=== PATIENT | female | born 1935 | race Caucasian/White ===

== ENCOUNTER 2016-06-08 19:38 | Inpatient (IN) | payer OTHER ==
--- NOTE | ~2016-06-08 | CN ---
Consultation Report [facility] [address] [place]. [address] NAME: RAMIRO ARORA : 35 STATUS : ADM Celia PAT#: [id number] AGE: 81 ADM/REG DATE : 06/08/16 MR#: [id number] REPORT SERV DATE: 06/09/16 DICTATED BY: ELIANE GENAO DATE: 06/09/16 REPORT STATUS : Draft TRANSCRIBED BY: MODL DATE: 06/09/16 NEUROLOGY CONSULTATION DATE OF CONSULTATION: 06/09/2016 REASON FOR CONSULTATION: Acute encephalopathy and weakness. HOSPITALIST: Michael García DO. ONCOLOGIST: Rosa Boyle M.D., in [place]. HISTORY OF PRESENT ILLNESS: The patient is an 81-year-old female who has a diagnosis of non- Hodgkin's lymphoma. On 05/28, the patient had a fall which ended up with a fall which was fairly significant. It was thought that she may have fractured the hip. So she was taken to [facility] for further evaluation and treatment. She was evaluated there and was found to not have any significant or untoward injuries. However, she was confused. According to the patient's two daughters, she was having visual hallucinations and lost her vision. She was unable to see for the first week. According to the patient, she was completely blind. Over the last several days, the patient has been able to distinguish some shakes and some movement. She is able to distinguish light. Prior to that, she had good vision. The patient was discharged from [facility] and went home. However, she was "a lot to handle" for the daughters. She could not carry on activities of daily living. She was unable to ambulate and again was unable to see. The daughters called Dr. Juarez who is the patient's corpsman, and he suggested that they bring the patient to [facility]. They brought her to the emergency department and consequently, she was admitted. It was found that she had a subacute to chronic fracture in her vertebrae from L1 to L2. A CT of her hip found a hypodense hematoma in the inguinal region, and she also had a pleural effusion and consolidation in her left lung. The patient was admitted and according to her daughter, she still is talking to people and animals that are not there. Upon admission, it was found that her INR was 11.2. She is currently taking Coumadin for atrial fibrillation. PAST MEDICAL HISTORY: Atrial fibrillation (on Coumadin therapy), coronary artery disease, hypertension, non-Hodgkin's lymphoma, gout, depression, GERD, stress incontinence, hyperlipidemia, and cigarette abuse. PAST SURGICAL HISTORY: Left breast lump removal, lymph node biopsy, and retinal repair on the left eye. HOME MEDICATIONS: Allopurinol 300 mg daily, Tenormin 50 mg daily, Tums p.r.n., Vantin 100 mg b.i.d. x5 days (which was completed on the ), Celexa 20 mg daily, HydroDIURIL 12.5 mg q.a.m., Zestril 20 mg q.a.m., nitroglycerin 0.4 mg sublingual p.r.n., Prilosec 20 mg daily, Ditropan 5 mg b.i.d., Zocor 20 mg q.a.m., Imdur ER 30 mg b.i.d., and Coumadin 4 mg daily. Consultation Report [address] [place]. [address] NAME: RAMIRO ARORA : 35 STATUS : ADM Celia PAT#: [id number] AGE: 81 ADM/REG DATE : 06/08/16 MR#: [id number] REPORT SERV DATE: 06/09/16 DICTATED BY: ELIANE GENAO DATE: 06/09/16 REPORT STATUS : Draft TRANSCRIBED BY: BECKI DATE: 06/09/16 ALLERGIES: CHANTIX. SOCIAL HISTORY: The patient is . She has four children. 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 She is a smoker. She does not drink alcohol or use illicit's. FAMILY HISTORY: The patient's mother at 75 from a stroke. Her father also at the age of 75 from a stroke. She has three brothers. Her oldest brother moved to [place], and she had no further contact. Her middle brother from an [place], and her younger brother at the age of 21 from a motor vehicle accident. REVIEW OF SYSTEMS: For pertinent positives see HPI. PHYSICAL EXAMINATION: VITAL SIGNS: The patient is an 81-year-old female, who stands 5 feet 3 inches tall and weighs 130 pounds. She is afebrile. Heart rate 86, respiratory rate 18, O2 saturations on room air 97%, blood pressure 129/60. NEURO: The patient is awake. She is oriented to person, place, and situation, not time. She can follow simple commands. She is not actively hallucinating at this time. Speech is clear. Language fluent. Right pupil is 2 mm and reactive. Left pupil is 5 mm, irregularly shaped, and minimally reactive (most likely chronic from her surgery). The patient cannot track with her eyes. Visual acuity is hand motion only at 3 feet. She tends to localize to the left more so than the right (questionable visual extinction on the right). She can move all extremities x4. However, she has a positive pronator drift on the right. Finger to nose, non ataxic. Upper extremity strength is 4/5 on the left and 3/5 on the right. Upper DTRs 1+ bilaterally. No reported sensory deficits. In the lower extremities, strength is 2/5 bilaterally. DTRs are 1+ bilaterally. Downgoing toes. No reported sensory deficits. NECK: No carotid bruits, JVD or thyromegaly. CHEST: Lung sounds are clear on the right. Diminished on the left with crackles. DATA: CBC is normal. BMP: Sodium 126, serum bicarb is 19. INR 11.2. Urinalysis negative for UTI. Procalcitonin 0.47 and lactate is 4.3. Chest x-ray, consolidation and effusion in the left lung. CT of the abdomen shows 1. Hematoma in the right inguinal region. 2. Small pericardial effusion. 3. Large irregular mass in the lower pelvis. 4. Soft tissue mass over the pancreas. 5. Chronic fracture L1-L2 of the spine. CT of the brain, no acute changes. NIH stroke scale is 9. ASSESSMENT/PLAN: 1. Acute encephalopathy; multifactorial in nature. Consultation Report [address] [place]. [address] NAME: RAMIRO ARORA : 35 STATUS : ADM Celia PAT#: [id number] AGE: 81 ADM/REG DATE : 06/08/16 MR#: [id number] REPORT SERV DATE: 06/09/16 DICTATED BY: ELIANE GENAO DATE: 04/25/17 REPORT STATUS : Draft TRANSCRIBED BY: BECKI DATE: 06/09/16 a. Probable stroke. At this point, the patient will undergo an MRI of the brain without gadolinium and an MRA of the head and neck. She will most likely need some low-dose Ativan, PT, OT, speech therapy consultation, risk factor reduction. She is Coumadin toxic. So she will only be placed on Lipitor 80 mg at this time. b. Sepsis. The patient's lactate is 4.3. c. Possible pneumonia and pleural effusion in the left lobe. d. Hyponatremia. e. Coumadin toxicity. There is possibility of cerebral bleed. f. Lymphoma, possibility of paraneoplastic syndrome or metastasis. Thank you again for including us in consultation. We will go ahead and order additional lab work. Discontinue medications that could make the patient encephalopathic which would include Phenergan, Ditropan, and Celexa. Seroquel 12.5 mg will be added at bedtime and increase if tolerated. MICHELLE/BECKI Eliane Genao, [facility]- / [id number] CC: Keila Costa M.D. Wesley S. Thompson, DO Sylvia Krueger, M.D.
--- NOTE | ~2016-06-08 | HP ---
History And Physical [place] [id number] [facility] [place]. [address] NAME: RAMIRO ARORA : 35 STATUS : ADM Celia PAT#: [id number] AGE: 81 ADM/REG DATE : 06/08/16 MR#: [id number] REPORT SERV DATE: 06/09/16 DICTATED BY: ROMEO DOMINGUEZ DATE: 06/09/16 REPORT STATUS : Draft TRANSCRIBED BY: MODL DATE: 06/09/16 DATE OF ADMISSION: 06/08/2016 CHIEF COMPLAINT: Confusion and weakness. HISTORY OF PRESENT ILLNESS: This is an 81-year-old female with a history of lymphoma, followed by Dr. Rosa Boyle in [place], [place]; history of fall recently with altered mental status and confusion since then; left hip pain; atrial fibrillation, on chronic anticoagulation, who was brought to the emergency room here at [facility] with the above-mentioned complaint. History is obtained from the patient's two daughters, who are at bedside and reviewing data available on the [employer] system. According to available data, Ms. Arora had sustained a fall at home about a week and a half ago and since then, had been progressively getting more confused. She was fine before her fall taking care of herself entirely. Since then, she has become completely incapable of taking care of herself, cannot even do activities of daily living. She is completely confused. She was taken to [facility] after her fall, where initial workup did not reveal any acute fractures. She was admitted as an inpatient and workup was done, the details of which we do not have at this point. She was finally discharged to home a few days back, but the patient's family was very concerned, as she was completely incapable of doing anything at this point. They called the environmental emergencies planner, Dr. Rebolledo in [place], who suggested to bring her here. In the emergency room here, CT scan of the spine showed fracture of the L1-L2 vertebrae. CT of the brain was negative. CT of the hip showed hypodense hematoma in the right inguinal region. Films of the chest x-ray did not reveal any acute disease, but she had pleural effusion. Hospitalist Service is asked to admit her for further evaluation and treatment. At the time of my evaluation, she denied any chest pain, palpitations, or orthopnea. She has had no cough recently; has not had any hemoptysis, night sweats; or weight loss. According to the family, other than the fall mentioned above, she has not had any fevers, chills, nausea, vomiting, diarrhea, hematemesis, hematochezia, or hematuria. No other history of recent travel or exposures other than those mentioned above. PAST MEDICAL HISTORY: Significant for lymphoma, unknown kind, followed by Dr. Cassidy Boyle in [place], [place]; history of atrial fibrillation, on Xarelto; history of coronary artery disease; essential hypertension as well. SOCIAL HISTORY: She has about 60- to 70-pack year history of smoking, continues to do so. She denies alcohol use or recreational drug use. She is currently disabled. 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 FAMILY HISTORY: Noncontributory. MEDICATIONS: Her medications at home were reviewed by me in the chart today and reordered by me. History And Physical [address] [address] NAME: RAMIRO ARORA : 35 STATUS : ADM Celia PAT#: [id number] AGE: 81 ADM/REG DATE : 06/08/16 MR#: [id number] REPORT SERV DATE: 06/09/16 DICTATED BY: ROMEO DOMINGUEZ DATE: 06/09/16 REPORT STATUS : Draft TRANSCRIBED BY: BECKI DATE: 06/09/16 REVIEW OF SYSTEMS: As in history of present illness. All other systems were reviewed in detail and are quite unremarkable. PHYSICAL EXAMINATION EXAM: GENERAL: This is a pleasant 81-year-old, not in any acute distress. HEENT: Her head is atraumatic, normocephalic. She is alert, awake, oriented to time, place, and person. Pupils are equal, reacting to light and accommodating. External ocular muscles are intact. Membranes are moist and pink. Sclerae are nonicteric. NECK: Supple with no jugular venous distention, lymphadenopathy, or thyromegaly. LUNGS: Clear to auscultation with no wheezes, rubs, or crackles. HEART: Heart sounds were regular with no murmurs, rubs, or gallops. ABDOMEN: Soft, nontender. Bowel sounds are present. EXTREMITIES: Showed no cyanosis, clubbing, or edema. NEURO: Grossly intact. No focal sensory or motor deficits. She was able to move all four extremities. However, she is quite confused. She does reply to some questions very appropriately, but then continues on into vague confabulations. VITAL SIGNS: Her vital signs today showed a temperature of 97.8, pulse 84, respirations 19 a minute, blood pressure was 111/68, oxygen saturations were 95% breathing 3 L of oxygen via nasal cannula. LABORATORY DATA: Reviewed on the [employer] system showed a sodium of 125, potassium was 4.0, chloride 91, CO2 of 22, BUN was 26 with a creatinine of 1.02 and glucose was 79. CBC showed a white blood cell count of 8800, normal hemoglobin, hematocrit, and platelet count. Alkaline phosphatase and AST were within normal limits. AST was 44. Urinalysis was quite unremarkable. Films of the chest x-ray were reviewed by me on the PACS today and interpreted by me. Per my interpretation, there is normal bony architecture with no cardiomegaly. There are no acute infiltrates or effusions. CT of the spine, CT of the brain, CT of the hip were all reviewed by me and official radiology reports were also reviewed. CT of the hip did not show any hip or ankle fractures. CT of the spine showed fracture of the vertebral bodies of the L1-L2 vertebrae. CT brain was unremarkable and the hip showed hyperdense hematoma in the right inguinal region measuring 3.5 x 7.9 x 6.6 cm. IMPRESSION: 1. Metabolic encephalopathy. 2. Hyponatremia. 3. Left hip pain. 4. Fracture of the L1-L2 vertebrae. 5. Atrial fibrillation, on chronic anticoagulation with Xarelto. 6. Coronary artery disease. 7. Essential hypertension. 8. Pleural effusion. 9. Fall at home. PLAN: We will admit Ms. Arora to the Hospitalist Service with telemetry for a 24-hour observation period. We will obtain cultures, get a urinalysis done today and urine cultures History And Physical [address] [address] NAME: RAMIRO ARORA : 35 STATUS : ADM Celia PAT#: [id number] AGE: 81 ADM/REG DATE : 06/08/16 MR#: [id number] REPORT SERV DATE: 06/09/16 DICTATED BY: ROMEO DOMINGUEZ DATE: 06/09/16 REPORT STATUS : Draft TRANSCRIBED BY: BECKI DATE: 06/09/16 as well. Her altered mental status is multifactorial, probably metabolic encephalopathy. However, she does have lymphoma, hyponatremia, possible infection. We will check her procalcitonin and lactate levels as well. We will start her on IV fluids for volume replacement, check basic metabolic profiles on a four-hourly basis, follow sodium levels, and check for overcorrection. Nursing has been instructed to call me with the results after every test. We will also be very cautious with pain medications due to her confusion that she has already. We will also go through her medication list and stop any medication that may be a culprit as well. We will continue her anticoagulation for her atrial fibrillation at this period. We will check her prothrombin times and adjust her warfarin doses. We will also get an EKG as well. I have discussed the above plans with the patient and the family. Questions were answered and the two daughters are agreeable to the above recommendations. Further recommendations will follow after we have received results from the tests ordered. We may even consider an MRI of the brain. We will also get records from Dr. Boyle in [place], [place], and from [facility]. Hospitalist Service will be following her during her stay here. /BECKI Romeo Dominguez M.D. / [id number]
--- NOTE | ~2016-06-08 | DS ---
Discharge Summary [facility] [address] [facility] [place]. [address] NAME: RAMIRO ARORA : 35 STATUS : DIS IN PAT#: [id number] AGE: 81 ADM/REG DATE : 06/08/16 MR#: [id number] REPORT SERV DATE: 06/16/16 DICTATED BY: SOLA GUILLEN DATE: 06/15/16 REPORT STATUS : Draft TRANSCRIBED BY: MODL DATE: 06/15/16 ADMISSION DATE: 06/08/2016 DISCHARGE DATE: 06/15/2016 PRINCIPAL DIAGNOSIS: Lymphoma. SECONDARY DIAGNOSIS: 1. 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 2. Progressive dementia with delirium. 3. Acute blindness due to anticipated bilateral amaurosis fugax due to bilateral carotid artery stenosis. 4. Atrial fibrillation. 5. Hyponatremia. 6. Vertebral compression fracture. 7. Hypovolemic acute kidney injury. 8. Pleural effusion. HISTORY OF PRESENT ILLNESS: Please see Dr. Hlyton's dictation on 06/08. HOSPITAL COURSE: Admitted with altered mental status. The patient was found to be delirious and blind. CT showed atrophy, MRI was unremarkable, and funduscopic exam was also unremarkable; however, MRA showed severe bilateral carotid stenosis, but it was questionable whether she would be a candidate for any sort of intervention. We had requested ophthalmology consultation; however, they were unable to evaluate her for a dilated exam to prove ocular CVA but that remained the working diagnosis. The patient also was known to have been at [facility] in the recent past and had a large mass on her groin biopsied. This was concerning for malignancy based on the physical assessment, and the biopsy result in fact was lymphoma. She in addition had pleural effusion which was tapped. This was a lymphocytic infiltrate; however, no malignant cells were found. Flow cytometry, however, was not done. Her hyponatremia had improved. Her mental status had kind of waxed and waned; however, p.o. intake remained very poor. She developed acute renal insufficiency due to lack of p.o. intake. She received volume resuscitation; however, long consultation with the family felt it was best to go ahead and proceed with hospice care, and she was released to a care home facility on 06/15/2016 with hospice consultation upon arrival there as having had a bed-bound status, she was not a candidate for chemotherapy or carotid end arterectomy and most certainly not both. We anticipated with failure to thrive that the time would be relatively short indeed. She was released with Seroquel 25 at bedtime, Namenda, Aricept, Lortab p.r.n., tramadol p.r.n., Lipitor, Tenormin, allopurinol. She had been taken off lisinopril due to renal insufficiency. Greater than 30 minutes were spent in the care of this patient and discharge planning on discharge day. RSM/MODL Discharge Summary [address] [address] NAME: RAMIRO ARORA : 35 STATUS : DIS IN PAT#: [id number] AGE: 81 ADM/REG DATE : 06/08/16 MR#: [id number] REPORT SERV DATE: 06/16/16 DICTATED BY: SOLA GUILLEN DATE: 06/15/16 REPORT STATUS : Draft TRANSCRIBED BY: MODStefani DATE: 06/15/16 Sola Guillen M.D. / [id number] CC: Keila Costa M.D.
--- NOTE | ~2016-06-08 | CN ---
Consultation Report [facility] [address] [place]. [address] NAME: RAMIRO ARORA : 35 STATUS : ADM Celia PAT#: [id number] AGE: 81 ADM/REG DATE : 06/08/16 MR#: [id number] REPORT SERV DATE: 06/10/16 DICTATED BY: PEPE MENDEZ DATE: 06/10/16 REPORT STATUS : Draft TRANSCRIBED BY: MODL DATE: 06/10/16 CONSULTATION NOTE DATE OF CONSULTATION: 06/10/2016 HISTORY: This is an 81-year-old, debilitated white female whom I am asked to see for bilateral hydronephrosis. She has been admitted to the hospital with altered mental status. Her family states that she had a fall a couple of weeks ago and has been debilitated and nonambulatory since then. She has become more confused at home and incapable of self-care. In addition, she has been treated by Dr. Boyle in [place] for history of non-Hodgkin's lymphoma. The family said that this has been followed conservatively for quite sometime but recently a course of treatment has been tried, and the patient was having trouble tolerating it secondary to weakness. Since she has been here in the hospital, a CT of the abdomen and pelvis has been performed which has shown bilateral hydroureteronephrosis right greater than left with bulky retroperitoneal adenopathy and a large pelvic mass. Presumably, this represents the lymphoma. The urologic history is obtained through the patient's daughter, and she says that Ms. Arora saw urologist in the [place] group within the last year for urinary urgency and sensation of incomplete emptying but no treatment was elected. Although, she may have had occasional UTI, she does not sound like she has had chronic UTIs. At this point, she has a Odom catheter indwelling. She denies complaints of discomfort referable to her kidneys. MEDICAL HISTORY: Includes atrial fibrillation, chronically anticoagulated with Coumadin. Also history of heart disease and hypertension. SOCIAL HISTORY: She has a long smoking history and continues to smoke. She does not drink. She lives with family. PHYSICAL EXAMINATION: GENERAL: She is a pleasant white female. She is conversive and oriented at this point. She asks appropriate questions. VITAL SIGNS: She is afebrile. Her vital signs are stable. ABDOMEN: Soft, nontender, and nondistended. I cannot specifically palpate any masses. BACK: Shows no CVA tenderness. : Her bladder is not palpable. There is a Odom catheter indwelling draining what looks like reasonably clear urine. LABORATORY DATA: Blood cultures are negative. BUN and creatinine are 28 and 0.9 respectively. White count 8.5, H and H 12.6 and 37.4. Urinalysis showed 3 red cells and 4 white cells per high-powered field. CT abdomen and pelvis again has been reviewed and shows bilateral retroperitoneal adenopathy with bilateral hydronephrosis right greater than left. In addition, there is a large pelvic mass. No specific renal stone is noted. IMPRESSION: Consultation Report [place] [id number] [facility] [address] NAME: RAMIRO ARORA : 35 STATUS : ADM Celia PAT#: [id number] AGE: 81 ADM/REG DATE : 06/08/16 MR#: [id number] REPORT SERV DATE: 06/10/16 DICTATED BY: PEPE MENDEZ DATE: 06/10/16 REPORT STATUS : Draft TRANSCRIBED BY: BECKI DATE: 06/10/16 1. Bilateral hydronephrosis right somewhat greater than left due to ureteral obstruction from retroperitoneal and pelvic masses. 2. Non-Hodgkin's lymphoma with failed recent treatment trial. 3. Debility, nonambulatory in part secondary to recent fall. 4. Pleural effusion. 5. Altered mental status. 6. Multiple other medical issues as outlined above. RECOMMENDATIONS: I discussed the implications of the ureteral obstruction with the patient and her family. We discussed management options of no treatment and observation versus proceeding with cystoscopy and ureteral stenting or even nephrostomy tube drainage. They understand that stenting will help maintain an optimized kidney function particularly for any future treatment of the lymphoma. They also understand that ureteral stenting could be complicated by bleeding, infection, discomfort, and by the certainty of the need for repetitive surgery to exchange the stents. After reviewing all pros and cons, the family is undecided at this point, but are leaning toward a conservative management, and I think this is reasonable. I will follow up tomorrow, and we will go from there. Thank you for the consult. SELENA/BECKI Pepe Mendez M.D. / [id number] CC: Keila Costa M.D.
[2016-06-08 22:33] LABS: BASOPHILS 0.1 %; BASOPHILS ABSOLUTE 0.01 10/3/uL (0.0-0.16); EOSINOPHILS 0.2 %; EOSINOPHILS ABSOLUTE 0.02 10/3/uL (0.0-0.53); ER CBC TAT 0 Hrs 08 Mins; HEMATOCRIT 36.2 % (36.0-48.0); HEMOGLOBIN 12.4 g/dL (12.0-16.0); IMMATURE GRANULOCYTES 1.2 %; IMMATURE GRANULOCYTES ABSOLUTE 0.11 10/3/uL (0.0-0.11); LYMPHOCYTES 10.3 %; LYMPHOCYTES ABSOLUTE 0.91 10/3/uL (0.67-4.30); MEAN CORPUS HGB CONC 34.3 g/dL (32.0-36.0); MEAN CORPUSCULAR HEMOGLOB 30.5 pg (26.0-34.0); MEAN CORPUSCULAR VOLUME 89.2 fL (80-100); MEAN PLATELET VOLUME 10.4 fL (9.2-13.0); MONOCYTES 6.1 %; MONOCYTES ABSOLUTE 0.54 10/3/uL (0.21-1.20); NEUTROPHILS 82.1 %; NEUTROPHILS ABSOLUTE 7.25 10/3/uL (2.02-8.40); PLATELET COUNT 219 10/3/uL (150-400); RBC DISTRIBUTION WIDTH 21.5 % (12.0-16.0); RED CELL COUNT 4.06 10/6/uL (4.0-5.6); WHITE BLOOD CELLS 8.8 10/3/uL (4.5-10.5)
[2016-06-08 22:34] LABS: MANUAL DIFF NO %
[2016-06-08 22:50] LABS: A/G RATIO 0.9 (0.7-1.9); ALBUMIN 2.8 G/DL (3.5-5.0); ALKALINE PHOSPHATASE 103 U/L (45-117); BUN (BLOOD UREA NITROGEN) 26 MG/DL (6-23); CALCIUM, SERUM 9.2 MG/DL (8.5-10.4); CHLORIDE, SERUM 91 MMOL/L (96-112); CO2 (CARBON DIOXIDE) 22 MMOL/L (24-34); CREATININE 1.02 MG/DL (0.55-1.02); DIRECT BILIRUBIN 0.3 MG/DL (0.0-0.4); GFR AFRICAN AMERICAN 60 ML/MIN (>=60); GFR NON AFRICAN AMERICAN 52 ML/MIN (>=60); GLUCOSE, SERUM 79 MG/DL (60-99); INDIRECT BILIRUBIN(NOT ORDER) 0.7 MG/DL (0.1-0.9); SGOT(AST) 44 U/L (5-40); SGPT(ALT) 12 U/L (5-65); SODIUM, SERUM 125 MMOL/L (135-148); TOTAL PROTEIN 5.8 G/DL (6.0-8.5)
[2016-06-09] MEDS ORDERED: VANTIN100 MG PO (00:59)
[2016-06-09] MEDS ORDERED: HCTZ12.5 PO (00:59)
[2016-06-09] MEDS ORDERED: ZESTRIL20 MG PO (01:00)
[2016-06-09] MEDS ORDERED: DITRO5 PO (01:01)
[2016-06-09] MEDS ORDERED: TUMSROLL PO (01:02)
[2016-06-09] MEDS ORDERED: COUMADIN4 MG PO (01:02)
[2016-06-09] MEDS ORDERED: PRILO PO (01:02)
[2016-06-09] MEDS ORDERED: ATEN50 PO (01:03)
[2016-06-09] MEDS ORDERED: CELEXA20 PO (01:03)
[2016-06-09] MEDS ORDERED: Z300 PO (01:04)
[2016-06-09] MEDS ORDERED: ZOCOR20 PO (01:04)
[2016-06-09] MEDS ORDERED: NITROSTAT0.4 MG SL (01:04)
[2016-06-09] MEDS ORDERED: IMDUR ER (01:08)
[2016-06-09 01:49] LABS: ASCORBIC ACID (UR NOT ORDER) NEG (NEG); BILIRUBIN, URINE NEGATIVE (NEG); ER URINALYSIS TAT 0 Hrs 00 Mins; KETONE, URINE 20 MG/DL (NEG); LEUKOCYTE ESTERASE(NOT OR NEG (NEG); NITRITE (URINE) NEG (NEG); WBC (NOT ORDERED) (RFLEX) 4 (0-5)
[2016-06-09 06:16] LABS: BASOPHILS 0.2 %; BASOPHILS ABSOLUTE 0.02 10/3/uL (0.0-0.16); EOSINOPHILS 0.1 %; EOSINOPHILS ABSOLUTE 0.01 10/3/uL (0.0-0.53); HEMATOCRIT 37.4 % (36.0-48.0); HEMOGLOBIN 12.6 g/dL (12.0-16.0); IMMATURE GRANULOCYTES 1.4 %; IMMATURE GRANULOCYTES ABSOLUTE 0.12 10/3/uL (0.0-0.11); LYMPHOCYTES 12.4 %; LYMPHOCYTES ABSOLUTE 1.05 10/3/uL (0.67-4.30); MEAN CORPUS HGB CONC 33.7 g/dL (32.0-36.0); MEAN CORPUSCULAR HEMOGLOB 30.4 pg (26.0-34.0); MEAN CORPUSCULAR VOLUME 90.3 fL (80-100); MEAN PLATELET VOLUME 10.3 fL (9.2-13.0); MONOCYTES 7.6 %; MONOCYTES ABSOLUTE 0.65 10/3/uL (0.21-1.20); NEUTROPHILS 78.3 %; NEUTROPHILS ABSOLUTE 6.65 10/3/uL (2.02-8.40); PLATELET COUNT 230 10/3/uL (150-400); RBC DISTRIBUTION WIDTH 21.3 % (12.0-16.0); RED CELL COUNT 4.14 10/6/uL (4.0-5.6); WHITE BLOOD CELLS 8.5 10/3/uL (4.5-10.5)
[2016-06-09 06:18] LABS: MANUAL DIFF NO %
[2016-06-09 06:41] LABS: BUN (BLOOD UREA NITROGEN) 30 MG/DL (6-23); CALCIUM, SERUM 9.3 MG/DL (8.5-10.4); CHLORIDE, SERUM 91 MMOL/L (96-112); CO2 (CARBON DIOXIDE) 19 MMOL/L (24-34); GFR AFRICAN AMERICAN 55 ML/MIN (>=60); GFR NON AFRICAN AMERICAN 47 ML/MIN (>=60); GLUCOSE, SERUM 72 MG/DL (60-99); PHOSPHORUS, SERUM 3.3 MG/DL (2.5-4.5); POTASSIUM, SERUM 4.3 MMOL/L (3.5-5.3); SODIUM, SERUM 126 MMOL/L (135-148)
[2016-06-09 07:28] LABS: INTERNATIONAL NORMAL RATI 11.2 UNITS (-); PROTIME (NOT ORD) 86.5 SEC (12.0-14.5)
[2016-06-09 09:34] LABS: BUN (BLOOD UREA NITROGEN) 30 MG/DL (6-23); CALCIUM, SERUM 8.9 MG/DL (8.5-10.4); CHLORIDE, SERUM 90 MMOL/L (96-112); CO2 (CARBON DIOXIDE) 22 MMOL/L (24-34); CREATININE 1.11 MG/DL (0.55-1.02); GFR AFRICAN AMERICAN 54 ML/MIN (>=60); GFR NON AFRICAN AMERICAN 47 ML/MIN (>=60); GLUCOSE, SERUM 73 MG/DL (60-99); POTASSIUM, SERUM 4.2 MMOL/L (3.5-5.3); SODIUM, SERUM 126 MMOL/L (135-148)
[2016-06-09 11:20] LABS: AMMONIA < 10 UMOL/L (11-32)
[2016-06-09 11:46] LABS: ALBUMIN 2.9 G/DL (3.5-5.0); CHOL/HDL RATIO(NOT ORDER) 4.1 (0-5); DIRECT BILIRUBIN 0.2 MG/DL (0.0-0.4); INDIRECT BILIRUBIN(NOT ORDER) 0.8 MG/DL (0.1-0.9)
[2016-06-09 11:47] LABS: FOLATE 6.6 NG/ML (>5.2)
[2016-06-09 13:11] LABS: GLYCOHEMOGLOBIN (HbA1c) 4.6 % (4.7-6.1)
[2016-06-09 13:14] LABS: BUN (BLOOD UREA NITROGEN) 31 MG/DL (6-23); CHLORIDE, SERUM 93 MMOL/L (96-112); CO2 (CARBON DIOXIDE) 20 MMOL/L (24-34); CREATININE 1.01 MG/DL (0.55-1.02); GFR AFRICAN AMERICAN 60 ML/MIN (>=60); GFR NON AFRICAN AMERICAN 52 ML/MIN (>=60); GLUCOSE, SERUM 75 MG/DL (60-99); POTASSIUM, SERUM 4.2 MMOL/L (3.5-5.3); SODIUM, SERUM 128 MMOL/L (135-148)
[2016-06-09 17:59] LABS: BUN (BLOOD UREA NITROGEN) 29 MG/DL (6-23); CALCIUM, SERUM 9.2 MG/DL (8.5-10.4); CHLORIDE, SERUM 93 MMOL/L (96-112); CO2 (CARBON DIOXIDE) 19 MMOL/L (24-34); CREATININE 1.03 MG/DL (0.55-1.02); GFR AFRICAN AMERICAN 59 ML/MIN (>=60); GFR NON AFRICAN AMERICAN 51 ML/MIN (>=60); GLUCOSE, SERUM 68 MG/DL (60-99); POTASSIUM, SERUM 4.3 MMOL/L (3.5-5.3); SODIUM, SERUM 128 MMOL/L (135-148)
[2016-06-09 22:31] LABS: BUN (BLOOD UREA NITROGEN) 32 MG/DL (6-23); CHLORIDE, SERUM 93 MMOL/L (96-112); CO2 (CARBON DIOXIDE) 22 MMOL/L (24-34); CREATININE 1.06 MG/DL (0.55-1.02); GFR AFRICAN AMERICAN 57 ML/MIN (>=60); GFR NON AFRICAN AMERICAN 49 ML/MIN (>=60); GLUCOSE, SERUM 73 MG/DL (60-99); SODIUM, SERUM 129 MMOL/L (135-148)
[2016-06-10 00:59] LABS: BUN (BLOOD UREA NITROGEN) 32 MG/DL (6-23); CALCIUM, SERUM 8.7 MG/DL (8.5-10.4); CHLORIDE, SERUM 94 MMOL/L (96-112); CO2 (CARBON DIOXIDE) 23 MMOL/L (24-34); GFR AFRICAN AMERICAN 55 ML/MIN (>=60); GFR NON AFRICAN AMERICAN 47 ML/MIN (>=60); GLUCOSE, SERUM 77 MG/DL (60-99); SODIUM, SERUM 130 MMOL/L (135-148)
[2016-06-10 06:22] LABS: CALCIUM, SERUM 8.9 MG/DL (8.5-10.4); CHLORIDE, SERUM 96 MMOL/L (96-112); CO2 (CARBON DIOXIDE) 22 MMOL/L (24-34); GFR AFRICAN AMERICAN 70 ML/MIN (>=60); GFR NON AFRICAN AMERICAN 60 ML/MIN (>=60); GLUCOSE, SERUM 76 MG/DL (60-99); POTASSIUM, SERUM 4.1 MMOL/L (3.5-5.3); SODIUM, SERUM 131 MMOL/L (135-148)
[2016-06-10 06:24] LABS: BUN (BLOOD UREA NITROGEN) 28 MG/DL (6-23)
[2016-06-10 10:59] LABS: BUN (BLOOD UREA NITROGEN) 28 MG/DL (6-23); CALCIUM, SERUM 8.7 MG/DL (8.5-10.4); CHLORIDE, SERUM 95 MMOL/L (96-112); CO2 (CARBON DIOXIDE) 25 MMOL/L (24-34); GFR AFRICAN AMERICAN 70 ML/MIN (>=60); GFR NON AFRICAN AMERICAN 60 ML/MIN (>=60); GLUCOSE, SERUM 73 MG/DL (60-99); SODIUM, SERUM 132 MMOL/L (135-148)
[2016-06-11 06:06] LABS: BASOPHILS 0.1 %; BASOPHILS ABSOLUTE 0.01 10/3/uL (0.0-0.16); EOSINOPHILS 0.1 %; EOSINOPHILS ABSOLUTE 0.01 10/3/uL (0.0-0.53); IMMATURE GRANULOCYTES 0.8 %; IMMATURE GRANULOCYTES ABSOLUTE 0.06 10/3/uL (0.0-0.11); LYMPHOCYTES 8.5 %; LYMPHOCYTES ABSOLUTE 0.66 10/3/uL (0.67-4.30); MEAN CORPUS HGB CONC 33.6 g/dL (32.0-36.0); MEAN CORPUSCULAR HEMOGLOB 30.8 pg (26.0-34.0); MEAN CORPUSCULAR VOLUME 91.6 fL (80-100); MEAN PLATELET VOLUME 10.6 fL (9.2-13.0); MONOCYTES 6.5 %; MONOCYTES ABSOLUTE 0.51 10/3/uL (0.21-1.20); NEUTROPHILS ABSOLUTE 6.54 10/3/uL (2.02-8.40); PLATELET COUNT 177 10/3/uL (150-400); RBC DISTRIBUTION WIDTH 21.5 % (12.0-16.0); RED CELL COUNT 3.57 10/6/uL (4.0-5.6); WHITE BLOOD CELLS 7.8 10/3/uL (4.5-10.5)
[2016-06-11 06:07] LABS: HEMATOCRIT 32.7 % (36.0-48.0); MANUAL DIFF NO %
[2016-06-11 06:20] LABS: INTERNATIONAL NORMAL RATI 1.7 UNITS (-)
[2016-06-11 06:21] LABS: PROTIME (NOT ORD) 19.6 SEC (12.0-14.5)
[2016-06-11 06:44] LABS: CALCIUM, SERUM 8.7 MG/DL (8.5-10.4); CHLORIDE, SERUM 98 MMOL/L (96-112); CO2 (CARBON DIOXIDE) 22 MMOL/L (24-34); CREATININE 0.84 MG/DL (0.55-1.02); GFR AFRICAN AMERICAN 76 ML/MIN (>=60); GFR NON AFRICAN AMERICAN 65 ML/MIN (>=60); GLUCOSE, SERUM 81 MG/DL (60-99); POTASSIUM, SERUM 4.1 MMOL/L (3.5-5.3); SGOT(AST) 41 U/L (5-40); SGPT(ALT) 11 U/L (5-65); SODIUM, SERUM 133 MMOL/L (135-148); TOTAL BILIRUBIN 1.2 MG/DL (0-1.2)
[2016-06-11 06:45] LABS: A/G RATIO 0.9 (0.7-1.9); ALBUMIN 2.3 G/DL (3.5-5.0); ALKALINE PHOSPHATASE 91 U/L (45-117); BUN (BLOOD UREA NITROGEN) 22 MG/DL (6-23); FOLATE 4.8 NG/ML (>5.2); GLOBULIN 2.7 G/DL (2.5-4.1)
[2016-06-11 12:52] LABS: BD FL LYMPH (NOT ORD) 53 %; BF BASO (NOT OF) 0 %; BF LARGE MONONUCLEAR 23 %; BODY FLUID EOS (NOT ORD) 0 %; BODY FLUID SEG (NOT ORD) 24 %
[2016-06-11 12:53] LABS: BD FL SOURCE (NOT ORD) THORACENTESIS
[2016-06-11 12:55] LABS: AMYLASE BODY FLUID 26 U/L; LDH BODY FLUID (NOT ORD) 342 U/L; PROTEIN BODY FLUID 2.4 G/DL
[2016-06-11 13:50] LABS: BF TOTAL CELL CT (NOT ORD 1079 /MM3; BODY FLUID RBC (NOT ORD) 8312 /MM3
[2016-06-15 05:32] LABS: BASOPHILS 0.2 %; BASOPHILS ABSOLUTE 0.02 10/3/uL (0.0-0.16); EOSINOPHILS 0.9 %; EOSINOPHILS ABSOLUTE 0.08 10/3/uL (0.0-0.53); HEMOGLOBIN 11.9 g/dL (12.0-16.0); IMMATURE GRANULOCYTES 1.2 %; IMMATURE GRANULOCYTES ABSOLUTE 0.11 10/3/uL (0.0-0.11); LYMPHOCYTES 9.7 %; LYMPHOCYTES ABSOLUTE 0.88 10/3/uL (0.67-4.30); MEAN CORPUSCULAR HEMOGLOB 31.1 pg (26.0-34.0); MEAN CORPUSCULAR VOLUME 94.3 fL (80-100); MONOCYTES 8.1 %; MONOCYTES ABSOLUTE 0.73 10/3/uL (0.21-1.20); NEUTROPHILS 79.9 %; NEUTROPHILS ABSOLUTE 7.23 10/3/uL (2.02-8.40); PLATELET COUNT 211 10/3/uL (150-400); RED CELL COUNT 3.83 10/6/uL (4.0-5.6); WHITE BLOOD CELLS 9.1 10/3/uL (4.5-10.5)
[2016-06-15 05:37] LABS: BUN (BLOOD UREA NITROGEN) 39 MG/DL (6-23); CALCIUM, SERUM 8.3 MG/DL (8.5-10.4); CHLORIDE, SERUM 99 MMOL/L (96-112); CO2 (CARBON DIOXIDE) 22 MMOL/L (24-34); CREATININE 1.56 MG/DL (0.55-1.02); GFR AFRICAN AMERICAN 36 ML/MIN (>=60); GFR NON AFRICAN AMERICAN 31 ML/MIN (>=60); GLUCOSE, SERUM 113 MG/DL (60-99); POTASSIUM, SERUM 5.1 MMOL/L (3.5-5.3); SODIUM, SERUM 133 MMOL/L (135-148)
[2016-06-15 05:40] LABS: HEMATOCRIT 36.1 % (36.0-48.0); MANUAL DIFF NO %
== END 2016-06-15 17:02 | DRG 840 ==
LOC: ER 19:38 → 1SO 21:00
PROVIDERS: Emergency Medicine; Internal Medicine; Internal Medicine Pulmonary Disease; Nurse Practitioner
PROC: 0W9B3ZX Drainage of Left Pleural Cavity, Percutaneous Approach, Diagnostic (ICD-10-PCS; principal; 2016-06-11)
DX: C85.95 Non-Hodgkin lymphoma, unspecified, lymph nodes of inguinal region and lower limb (principal); G93.41 Metabolic encephalopathy; J90 Pleural effusion, not elsewhere classified; N17.9 Acute kidney failure, unspecified; R64 Cachexia; S32.019A Unspecified fracture of first lumbar vertebra, initial encounter for closed fracture; F05 Delirium due to known physiological condition; S32.029A Unspecified fracture of second lumbar vertebra, initial encounter for closed fracture; E87.1 Hypo-osmolality and hyponatremia; G45.3 Amaurosis fugax; N13.1 Hydronephrosis with ureteral stricture, not elsewhere classified; Z66 Do not resuscitate; I48.91 Unspecified atrial fibrillation; E86.1 Hypovolemia; F03.90 Unspecified dementia, unspecified severity, without behavioral disturbance, psychotic disturbance, mood disturbance, and anxiety; I10 Essential (primary) hypertension; R62.7 Adult failure to thrive; I65.23 Occlusion and stenosis of bilateral carotid arteries; F32.9 Major depressive disorder, single episode, unspecified; E78.5 Hyperlipidemia, unspecified; K21.9 Gastro-esophageal reflux disease without esophagitis; S30.1XXA Contusion of abdominal wall, initial encounter; J44.9 Chronic obstructive pulmonary disease, unspecified; I25.10 Atherosclerotic heart disease of native coronary artery without angina pectoris; F17.210 Nicotine dependence, cigarettes, uncomplicated; W18.30XA Fall on same level, unspecified, initial encounter; Z79.01 Long term (current) use of anticoagulants; Z79.899 Other long term (current) drug therapy; Z86.73 Personal history of transient ischemic attack (TIA), and cerebral infarction without residual deficits; Z88.8 Allergy status to other drugs, medicaments and biological substances
CPT/HCPCS: 32555; 36415; 70450; 70491; 70496; 70498; 70551; 71010; 72125; 72131; 73610-LT; 73700-LT; 74176; 80048; 80053; 80061; 80076; 81001; 82140; 82150; 82248; 82306; 82533; 82607; 82746; 83036; 83605; 83615; 83690; 83735; 84100; 84145; 84157; 84443; 85025; 85610; 86900; 86901; 87015; 87040; 87070; 87116; 87205; 87449; 88112; 88305; 89051; 93306; 96374; 97110-GO; 97110-GP; 97161-GP; 97166-GO; 97530-GP; 99291; A9270-GY; J1170; J2405; J3430; P9059; Q9967